=== PATIENT | female | born 1970 | race Caucasian/White ===

== ENCOUNTER → 2017-11-24 | Emergency (ER) | payer OTHER ==
[~2017-11-24] VITALS: Ht 165.1 cm; Wt 54.4 kg
== END | disposition home or self-care (01) ==
LOC: ER 15:20
DX: S60.221A Contusion of right hand, initial encounter (principal); W22.8XXA Striking against or struck by other objects, initial encounter; Y93.89 Activity, other specified; Y92.89 Other specified places as the place of occurrence of the external cause; Y99.8 Other external cause status